=== PATIENT | male | born 1955 | race African-American/Black ===

== ENCOUNTER 2017-03-01 12:55 | Day surgery (SDC) | payer MEDICARE, MEDICAID ==
[2017-02-28 13:39] VITALS: BMI 17.7
[2017-03-01] MEDS ORDERED: Glycopyrrolate 0.2 MG/ML 5 ML SYRINGE ONE (14:33)
[2017-03-01] MEDS ORDERED: Propofol 200 MG/20 ML VIAL ONE (14:33)
[2017-03-01] MEDS ORDERED: Lidocaine 1% PF 5 ML VIAL ONE (14:33)
--- NOTE | 2017-03-01 19:06 | OP ---
GASTROINTESTINAL ENDOSCOPY NOTE DATE OF PROCEDURE: 03/01/2017 SURGEON: Alex Duran MD VERIFY REP SURGEON: None. PROCEDURE: Colonoscopy, average risk screening. INDICATION: Average risk colorectal cancer screening exam. This is the patient's first colonoscopy . MEDICATIONS: See anesthesia record. FINDINGS: After discussion of the risks, benefits, and alternatives of the procedure, informed cons ent was obtained and witnessed. Pre-endoscopic cardiopulmonary examination was satisfactory. Timeo ut was performed before sedation was achieved. Sedation was achieved with anesthesia assistance in the endoscopy unit. Digital rectal exam was performed, which was unremarkable. A Pentax adult colo noscope was inserted into the anus and passed forward to the cecum in the usual fashion. The cecal base was identified by the appendiceal orifice as well as the ileocecal valve. The terminal ileum w as intubated and the ileal mucosa appeared normal. The colonoscope was then slowly withdrawn in a g radual and circumferential manner with careful examination of the entire colonic mucosa. The qualit y of the prep was good. The colonic mucosa appeared normal throughout. There was no evidence of an y polyps or mass lesions. No other mucosal abnormalities. Retroflexion in the rectum was normal. The colonoscope was completely withdrawn and the patient allowed to recover. The patient tolerated the procedure well. There were no immediate post-procedure complications. IMPRESSION: Normal colonoscopy to the terminal ileum. RECOMMENDATION: Repeat colonoscopy for screening purposes in 10 years.
== END 2017-03-01 15:50 | disposition home or self-care (01) ==
LOC: SDC 12:55
PROVIDERS: ATTEND Internal Medicine
PROC: 0DJD8ZZ Inspection of Lower Intestinal Tract, Via Natural or Artificial Opening Endoscopic (ICD-10-PCS; principal; 2017-03-01)
DX: Z12.11 Encounter for screening for malignant neoplasm of colon (principal); Q90.9 Down syndrome, unspecified; L80 Vitiligo; E03.9 Hypothyroidism, unspecified; D64.9 Anemia, unspecified; Z79.899 Other long term (current) drug therapy
CPT/HCPCS: J2001; J2704

== ENCOUNTER 2018-01-22 07:35 | Outpatient (CLI) | payer MEDICARE, MEDICAID | END 2018-01-22 07:36 | disposition home or self-care (01) | LOC: BICULT 07:35 | PROVIDERS: ATTEND Nurse Practitioner Family | DX: Z09 Encounter for follow-up examination after completed treatment for conditions other than malignant neoplasm (principal); K81.0 Acute cholecystitis; N47.1 Phimosis; N17.9 Acute kidney failure, unspecified; J15.6 Pneumonia due to other Gram-negative bacteria; N47.5 Adhesions of prepuce and glans penis; N99.89 Other postprocedural complications and disorders of genitourinary system; R93.2 Abnormal findings on diagnostic imaging of liver and biliary tract; Z87.09 Personal history of other diseases of the respiratory system; Z90.49 Acquired absence of other specified parts of digestive tract | CPT/HCPCS: 76705 ==

== ENCOUNTER 2022-03-30 17:51 | Emergency (ER) | payer MEDICAID, MEDICARE | END 2022-03-30 20:48 | disposition home or self-care (01) | LOC: ERS 17:51 | DX: S09.90XA Unspecified injury of head, initial encounter (principal); H66.90 Otitis media, unspecified, unspecified ear; E11.9 Type 2 diabetes mellitus without complications; W19.XXXA Unspecified fall, initial encounter | CPT/HCPCS: 70450 ==

== ENCOUNTER 2022-07-02 19:20 | Emergency (ER) | payer MEDICARE, MEDICAID ==
[~2022-07-02 19:20] MED LIST: Iopamidol-370 76% 500 ML 1 ML ONE
[2022-07-02 21:11] LABS: #Lymphocytes 0.8 thou/uL (1.20-3.40); #Monocytes 0.5 thou/uL (0.11-0.59); #Neutrophils 4.5 thou/uL (1.40-6.50); %Basophils 0.1 % (0.0-1.0); %Eosinophils 0.2 % (0.0-10.0); %Lymphocytes 13.3 % (21.0-51.0); %Monocytes 8.3 % (0.0-10.0); %Neutrophils 78.1 % (42.0-75.0); Hemoglobin 11.9 g/dL (14.0-18.0); Mean Corpuscular HGB CONC 31.8 g/dL (32.0-36.0); Mean Corpuscular Hemoglobin 34.8 pg (27.0-31.0); Mean Platelet Volume 6.1 fL (7.4-10.4); Platelet Count 297 10x3/uL (130-400); RBC Distribution Width 15.4 % (11.5-14.5); Red Blood Cell (RBC) Count 3.42 mill/uL (4.70-6.10); White Blood Cell (WBC) Count 5.7 10x3/uL (4.8-10.8)
[2022-07-02 21:27] LABS: ALT (SGPT) 19 U/L (8-55); AST (SGOT) 25 U/L (5-34); Albumin 3.5 g/dL (3.4-4.8); Alkaline Phosphatase 103 U/L (40-110); Anion Gap 11 mmol/L (10-20); BUN (Urea Nitrogen) 12 mg/dL (8.4-25.7); Bilirubin, Total 0.3 mg/dL (0.2-1.2); Calc. Creatinine Clearance 0 mL/min (70-130); Calcium 8.8 mg/dL (7.8-10.44); Carbon Dioxide 28 mmol/L (23-31); Chloride 101 mmol/L (98-107); Estimated GFR 94; Globulin 4.1 g/dL (2.4-3.5); Glucose 142 mg/dL (80-115); Lipase 42 U/L (8-78); Potassium 4.5 mmol/L (3.5-5.1); Protein, Total 7.6 g/dL (5.8-8.1); Sodium 135 mmol/L (136-145)
[2022-07-03 02:20] LABS: Bacteria/HPF None Seen HPF (None Seen); Bilirubin Negative (Negative); Blood, Urine 1+ (Negative); Clarity Clear (Clear); Glucose, Urine (Dipstick) Normal (Negative); Ketone, Urine Negative (Negative); Leukocyte Negative Leu/uL (Negative); Nitrite Negative (Negative); Protein, Urine (Dipstick) Negative (Neg-Trace); RBC/HPF None Seen HPF (0-3); Specific Gravity, Urine 1.044 (1.002-1.036); Squamous Epithelial 0-3 HPF (0-3); Urobilinogen Normal mg/dL (Less than 2); WBC/HPF None Seen HPF (0-3)
== END 2022-07-03 02:53 | disposition home or self-care (01) ==
LOC: ERS 19:20
DX: J18.9 Pneumonia, unspecified organism (principal); R11.10 Vomiting, unspecified; E11.9 Type 2 diabetes mellitus without complications; E03.9 Hypothyroidism, unspecified; D72.819 Decreased white blood cell count, unspecified
CPT/HCPCS: 71045; 74177; 80053; 81003; 81015; 83605; 83690; 85025; 93005; 96360; 96361; Q9967